=== PATIENT | female | born 1965 | race Caucasian/White ===

== ENCOUNTER 2021-11-18 13:37 | Emergency (ER) | payer OTHER ==
[~2021-11-18] VITALS: Ht 154.9 cm; Wt 66.7 kg
[2021-11-18] MEDS ORDERED: IBUP-1955 PO (15:17)
[2021-11-18] MEDS ORDERED: HYDR-4209 PO (15:17)
[2021-11-18] MEDS ORDERED: HYDROCODONE/APAP 5/325MG TABLET ONE (15:22)
[2021-11-18] MEDS ORDERED: KETOROLAC TROMETHAMINE 15 MG/ML VIAL ONE (15:22)
[2021-11-18] MEDS ORDERED: KETOROLAC TROMETHAMINE INJ 30 MG/ML VIAL IM ONE (15:30)
[2021-11-18] MEDS ORDERED: HYDROCODONE/APAP 5/325MG TABLET PO ONE (15:30)
[2021-11-18 15:38] VITALS: BP 128/64
--- NOTE | 2021-11-18 15:38 | NUR ---
Patient discharged to home in stable condition. Written and verbal after care instructions given. Patient verbalizes understanding of instruction. Right shoulder sling noted intact.
== END 2021-11-18 15:38 | disposition home or self-care (01) ==
LOC: ER 14:51
DX: S46.011A Strain of muscle(s) and tendon(s) of the rotator cuff of right shoulder, initial encounter (principal); E78.5 Hyperlipidemia, unspecified; E03.9 Hypothyroidism, unspecified; W18.39XA Other fall on same level, initial encounter; Y93.41 Activity, dancing; Y92.89 Other specified places as the place of occurrence of the external cause; Y99.8 Other external cause status
CPT/HCPCS: 29105; 73030; 96372; 99283; J1885